=== PATIENT | female | born 1965 | race African-American/Black ===

== ENCOUNTER → 2016-04-19 | Outpatient (CLI) | payer BC ==
[~2016-04-19] MED LIST: ANAPROX DS550 MG PO; DYRENIUM50 MG PO; FLEXERIL5 MG PO; HYDROCODONE BIT1 T11 PO; K-DUR; KLOR-CON M2020 MEQ PO; MOTRIN800 MG PO; PEPCID20 MG PO; TRAMADOL HCL50 MG PO; VICODIN 5/500 505 MG PO; VOLTAREN50 M1 PO; ZOFRAN ODT8 MG PO
== END | disposition home or self-care (01) ==
LOC: MAMMO 16:15
DX: Z12.31 Encounter for screening mammogram for malignant neoplasm of breast (principal)

== ENCOUNTER → 2019-04-29 | Outpatient (CLI) | payer BC | END | disposition home or self-care (01) | LOC: US 09:31 | DX: Z12.31 Encounter for screening mammogram for malignant neoplasm of breast (principal); N93.9 Abnormal uterine and vaginal bleeding, unspecified ==

== ENCOUNTER → 2019-10-10 | Outpatient (CLI) | payer BC | END | disposition home or self-care (01) | LOC: COVID19 02:37 | DX: Z01.818 Encounter for other preprocedural examination (principal); Z11.59 Encounter for screening for other viral diseases; D25.0 Submucous leiomyoma of uterus; R10.2 Pelvic and perineal pain ==

== ENCOUNTER 2019-10-15 02:50 | Inpatient (IN) | payer BC ==
[~2019-10-15] VITALS: Ht 165.1 cm; Wt 72.8 kg
[2019-10-15] VITALS (11 sets, daily range): BP systolic 131–172; BP diastolic 82–99
--- NOTE | 2019-10-15 12:03 | NUR ---
I/S LEFT AT BEDSIDE. PT IS NOT IN ROOM. DEPT. STAFF WILL INSTRUCT WHEN PT. IS AVAILABLE.
--- NOTE | 2019-10-15 13:49 | NUR ---
PT. INSTRUCTED ON I/S AND THE BENEFITS OF USE. PT. ACHIEVED A VOLUME OF 1000 TO 1500. GOOD EFFORT.
--- NOTE | 2019-10-15 14:35 | NUR ---
MEDICATED WITH PRN IV DILAUDID FOR ABDOMINAL INCISION PAIN; SCHEDULED IV TORADOL GIVEN EARLIER NOT EFFECTIVE, PER PATIENT. SHE IS MORE ALERT AT THIS TIME, TAKING ICE AND SHERBERT WITHOUT DIFFICULTY, AND CALLING HER SISTER TO HAVE GLASSES DROPPED OFF.
--- NOTE | 2019-10-15 15:30 | NUR ---
PRN IV DILAUDID EFFECTIVE, PER PATIENT.
[2019-10-16] VITALS: BP 148/84
--- NOTE | 2019-10-16 01:01 | NUR ---
DR HERNANDEZ CALLED IN TO CHECK ON PATIENT. UPDATED HER. PATIENT IS RESTING COMFRORTABLY IN BED. NO COMPLAINTS AT THIS TIME. SHE HAS NOT GOTTEN UP OUT OF BED. I WILL TAKE OUT RODNEY IN THE MORNING AT 0600. DR HERNANDEZ STATED SHE WOULD BE HERE IN THE MORNING TO CHECK ON PATIENT.
--- NOTE | 2019-10-16 03:17 | NUR ---
24 HR chart check completed.
--- NOTE | 2019-10-16 06:34 | NUR ---
RODNEY CATHETER REMOVED. PATIENT TOLERATED WELL. SHE HAS BEEN USING INCENTIVE SPIROMETER THROUGHOUT OUT. EDUCATED PATIENT ON IMPORTANCE OF GETTING UP AND WALKING AND USING INCENTIVE SPIROMETER ALONG WITH POSITION CHANGES. PATIENT VOICED UNDERSTANDING. CALL LIGHT WITHIN REACH. WILL CONTINUE TO MONITOR.
[2019-10-16 07:50] LABS: BASO % 0.1 % (0.0-1.0); HEMATOCRIT 35.7 % (37.0-47.0); LYMPH # 1.8 10*3/uL (1.3-4.4); LYMPH % 16.4 % (27.0-41.0); MEAN CELL VOLUME 82.6 fl (81.0-99.0); MEAN CORPUSCULAR HGB 26.4 pg (27.0-31.0); MEAN CORPUSCULAR HGB CONC 31.9 g/dl (33.0-37.0); MEAN PLATELET VOLUME 9.4 fl (9.6-12.3); MONO # 0.8 10*3/uL (0.1-1.0); MONO % 6.9 % (3.0-9.0); NEUT # 8.4 10*3/uL (2.3-7.9); NEUT % 76.4 % (47.0-73.0); PLATELET COUNT AUTOMATED 278 10*3/uL (130-400); RED BLOOD COUNT 4.32 10*6/uL (4.10-5.10); RED CELL DISTRI WIDTH 13.7 % (0-14.5); WHITE BLOOD COUNT 10.9 10*3/uL (4.8-10.8)
[2019-10-16 08:00] VITALS: BP 126/74
--- NOTE | 2019-10-16 08:18 | NUR ---
Shift chart check completed.
--- NOTE | 2019-10-16 11:37 | NUR ---
P COMPLAIN OF PAIN 10, P REQUEST ONE TABLET OF NORCO, HECK IF NEED A SECOND TBLET, PT IS ORDERED 2 TABLETS VAILABLE.
[2019-10-16 12:00] VITALS: BP 122/70
--- NOTE | 2019-10-16 12:45 | NUR ---
pain medication effective for pain, no needs stated at this time
--- NOTE | 2019-10-16 14:50 | NUR ---
Food Processing Chemist in to talk to patient. Patient states lives at HOME with ALONE. There are 15 steps in the home. Physician: JANICE Pharmacy: [facility]IL ORDER Home health services: NONE Patient's level of ADLs: INDEPENDENT Patient has working utilities: YES DME: NONE Follow-up physician's appointment after d/c: WILL BE MADE BY HOSPITALIST NURSE DIRECTOR ON DISCHARGE Does patient want to access PORTAL?: NO Discharge plan PT LIVES AT HOME ALONE AND IS INDEPENDENT IN HER CARE. STATES HER SISTER IS HER FROM OUT OF TOWN TO STAY WITH HER FOR A WEEK. DENIES SHE WILL HAVE ANY NEEDS AT HOME ON DISCHARGE. WILL CONTINUE TO FOLLOW. STATES SHE WILL HAVE A RIDE HOME ON DISCHARGE. . CONRAD DOMINGUEZ
[2019-10-16 16:00] VITALS: BP 126/72
--- NOTE | 2019-10-16 17:24 | NUR ---
PT STATES NO NEEDS AT THIS TIME. PT STATES BLEEDING HAS SLOWED DOWN, LAST "TRIP TO THE BATHROOM" "NOT A LOT OF BED AT ALL" PT AWARE TO NOTIFY STAFF IF BLEEDING INCRESES OR WITH CONCERNS
--- NOTE | 2019-10-16 19:10 | NUR ---
REPORT RECEIVED. PT LYINGIN BED WATCHING TV. VOICES NO COMPLAINTS, CALL LIGHT IN REACH
[2019-10-16 20:00] VITALS: BP 130/76
--- NOTE | 2019-10-16 23:19 | NUR ---
NORCO GIVEN PER ORDER FOR COMPLAINTS OF 9/10 POST OP PAIN. WILL MONITOR
[2019-10-17] VITALS: BP 129/71
--- NOTE | 2019-10-17 00:15 | NUR ---
NORCO APPEARS EFFECTIVE. PT ASLEEP AT THIS TIME. NO S/S OF DISTRESS NOTED.
--- NOTE | 2019-10-17 05:14 | NUR ---
PT SLEEPING AT THIS TIME, CALL LIGHT IN REACH
[2019-10-17 08:00] VITALS: BP 130/80
[2019-10-17] MEDS ORDERED: HYDROCODONE-AC1 EAC1 PO (08:00)
[2019-10-17] MEDS ORDERED: IBU800 M1 PO (08:00)
--- NOTE | 2019-10-17 09:25 | NUR ---
Discharge instructions reviewed with patient. Patient receptive and verbalizes understanding. Follow-up care arranged. Written instructions given to patient. FRANSISCA HINSON
--- NOTE | 2019-10-17 09:51 | NUR ---
Discharged via wheelchair with belongings and dc instructions with assist of PA. Pt has person coming to pick her up.
== END 2019-10-17 09:50 | disposition home or self-care (01) | DRG 743 ==
LOC: SDC 02:50 → 5E 09:09 → SDC 14:00 → 5E 10-17 09:50
PROVIDERS: ADMIT Obstetrics & Gynecology
PROC: 0UT20ZZ Resection of Bilateral Ovaries, Open Approach (ICD-10-PCS; principal; 2019-10-15)
PROC: 0UT70ZZ Resection of Bilateral Fallopian Tubes, Open Approach (ICD-10-PCS; principal; 2019-10-15)
PROC: 0UJD4ZZ Inspection of Uterus and Cervix, Percutaneous Endoscopic Approach (ICD-10-PCS; principal; 2019-10-15)
PROC: 0UT90ZZ Resection of Uterus, Open Approach (ICD-10-PCS; principal; 2019-10-15)
DX: D25.9 Leiomyoma of uterus, unspecified (principal); N95.0 Postmenopausal bleeding; G89.29 Other chronic pain; Z90.79 Acquired absence of other genital organ(s)

== ENCOUNTER → 2023-01-05 | Outpatient (CLI) | payer OTHER ==
[~2023-01-05] MED LIST changes: +HYDROCODONE-AC1 EAC1 PO; +IBU800 M1 PO
[2023-01-05 14:59] LABS: BUN 7 mg/dl (9-23); CHLORIDE 102 mmol/L (98-107); CHOLESTEROL 204 mg/dL (<200); LDL CHOLESTEROL 128 mg/dL (9-159); POTASSIUM 3.4 mmol/L (3.4-5.1); TRIGLYCERIDES 115 mg/dl (<150)
== END | disposition home or self-care (01) ==
LOC: LAB 14:18
PROVIDERS: ATTEND Family Medicine
DX: I10 Essential (primary) hypertension (principal)

== ENCOUNTER → 2024-12-25 | Outpatient (CLI) | payer SELFPAY ==
[2024-12-25 16:38] LABS: BASO # 0.0 10*3/uL (0.0-0.1); BASO % 0.8 % (0.0-1.0); EOS # 0.4 10*3/uL (0.0-0.4); EOS % 7.9 % (1.0-4.0); MEAN CELL VOLUME 82.2 fl (81.0-99.0); MEAN CORPUSCULAR HGB 26.5 pg (27.0-31.0); MEAN PLATELET VOLUME 9.2 fl (9.6-12.3); MONO # 0.4 10*3/uL (0.1-1.0); MONO % 8.3 % (3.0-9.0); NEUT # 2.4 10*3/uL (2.3-7.9); NEUT % 44.9 % (47.0-73.0); NUCLEATED RED BLOOD CELL 0.0 % (0.0-0.0); NUCLEATED RED BLOOD CELL 0.0 10*3/uL (0.0-0.0); PLATELET COUNT AUTOMATED 368 10*3/uL (130-400); RED CELL DISTRI WIDTH 14.9 % (0-14.5)
[2024-12-25 17:12] LABS: BUN 8 mg/dl (9-23); LDL CHOLESTEROL 123 mg/dL (9-159); SGPT/ALT 22 U/L (5-49)
== END | disposition home or self-care (01) ==
LOC: LAB 15:46
PROVIDERS: ATTEND Nurse Practitioner Family
DX: I10 Essential (primary) hypertension (principal); Z13.1 Encounter for screening for diabetes mellitus; Z13.220 Encounter for screening for lipoid disorders; Z76.89 Persons encountering health services in other specified circumstances

== ENCOUNTER → 2025-01-13 | Outpatient (CLI) | payer OTHER | END | disposition home or self-care (01) | LOC: MAMMO 09:41 | PROVIDERS: ATTEND Nurse Practitioner Family | DX: Z12.31 Encounter for screening mammogram for malignant neoplasm of breast (principal) ==